=== PATIENT | male | born 2000 | race Caucasian/White ===

== ENCOUNTER 2025-10-30 00:34 | Emergency (ER) | payer SELFPAY ==
[2025-10-30] VITALS (20 sets, daily range): BP systolic 111–123; BP diastolic 71–78; PULSE 59–77; TEMP 36.4; O2SAT 98–99; BMI 20.7
--- NOTE | 2025-10-30 00:38 | ECG_ITS ---
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
--- NOTE | 2025-10-30 00:57 | ED.CHESTPAI1 ---
HPI - Chest Pain General Chief Complaint: Chest Pain Stated Complaint: SOB Chest pain dizziness Time Seen by Provider: 10/30/25 00:41 Source: patient Mode of arrival: ambulance Limitations: no limitations History of Present Illness HPI narrative: This 25-year-old male with a history of PTSD and anxiety presents for evaluation of chest pain, shortness of breath and dizziness that started while he was at work. He works at [employer]. 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 This is not his typical job but he does not express that he was overwhelmed doing this. He had some mild nausea at that time but did not vomit. He states he felt really dizzy like he was going to pass out. EMS was called and was given 324 mg baby aspirin and an IV was established by EMS. On arrival his chest pain is improved and he long no longer feels anxious or like he is going to pass out. He denies any chest pain upon arrival. He denies any diaphoresis but does admit that he was dizzy. He states he has a history of PT and anxiety. He is not on any medications for this. He states he has a panic attack about once a month. He does have a family physician in [facility] near where he lives. Related Data Home Medications ?Medication ?Instructions ?Recorded ?Confirmed No Known Home Medications 10/30/25 10/30/25 Allergies Allergy/AdvReac Type Severity Reaction Status Date / Time No Known Drug Allergies Allergy Verified 10/30/25 00:41 Review of Systems ROS Status of ROS 10 or more systems reviewed and unremarkable except as noted in history and below [facility] Medical History (Updated 10/30/25 @ 03:23 by Carey Will MD) Blindness of right eye ?H54.40 - Blindness, one eye, unspecified eye (ICD-10) PTSD (post-traumatic stress disorder) ?F43.10 - Post-traumatic stress disorder, unspecified (ICD-10) Anxiety ?F41.9 - Anxiety disorder, unspecified (ICD-10) Social History Little interest or pleasure in doing things: not at all Feeling down, depressed, or hopeless: not at all Exam Narrative Exam Narrative: Vital signs and Nursing Notes reviewed: Patient is afebrile with a normal pulse, normal blood pressure, he is not hypoxic with pulse ox of 98% on room air General: Awake, alert, oriented, no acute distress, lying comfortably on the stretcher HEENT: Normocephalic atraumatic, mucous membranes are moist and pink, eyes are clear, normal conjunctiva, vision is grossly intact, posterior pharynx is normal in appearance. Neck: Supple, no meningeal signs, no anterior or posterior cervical lymphadenopathy Chest: Lungs are clear to auscultation with good air entry, there is no wheezing rhonchi or rales appreciated no accessory muscle use, patient is speaking in complete sentences-no chest wall tenderness to palpation CVS: Regular rate and rhythm S1-S2, no murmurs rubs or gallops, pulses are brisk and equal bilaterally ABD: Soft, nondistended, nontender, no rebound guarding or rigidity, bowel sounds are normal, no pulsatile masses appreciated Extremities: Moving all extremities, no lower extremity tenderness or swelling noted, negative Homans' sign, pulses are brisk and equal bilaterally Skin: Normal in appearance without rash,pallor, petechiae or purpura Neuro: No focal deficits Psych: Patient is calm, cooperative, forthcoming, does not appear to be responding to internal stimuli Constitutional Vital Signs, click to edit/add: Last Vital Signs Temp 97.6 F 10/30/25 00:35 Pulse 67 10/30/25 03:10 Resp 16 10/30/25 03:10 BP 123/78 10/30/25 02:00 Pulse Ox 99 10/30/25 02:20 O2 Del Method Room Air 10/30/25 00:35 Course Vital Signs Vital signs: Vital Signs Temperature 97.6 F 10/30/25 00:35 Pulse Rate 74 10/30/25 00:35 Respiratory Rate 19 10/30/25 00:35 Blood Pressure 120/71 10/30/25 00:35 Pulse Oximetry 98 10/30/25 00:35 Oxygen Delivery Method Room Air 10/30/25 00:35 Temperature 97.6 F 10/30/25 00:35 Pulse Rate 67 10/30/25 03:10 Respiratory Rate 16 10/30/25 03:10 Blood Pressure 123/78 10/30/25 02:00 Pulse Oximetry 99 10/30/25 02:20 Oxygen Delivery Method Room Air 10/30/25 00:35 MDM - Chest Pain MDM Narrative Medical decision making narrative: This 25-year-old male, smoker with a history of PTSD and anxiety is brought to emergency department by EMS from [facility] where he works for evaluation of chest pain, shortness of breath and dizziness. Patient states the symptoms started while he was at work. He did not pass out. He has no abdominal pain. He did have some mild nausea prior to coming in but did not vomit. He is not on any medications for his anxiety or PTSD. He denies any suicidal or homicidal ideation. EKG done upon arrival is a sinus rhythm at 73 bpm with no acute findings. An IV had been established by EMS and he was given 324 mg baby aspirin prior to arrival. His vital signs are stable. Lungs are clear, abdomen is soft. Pulses are brisk and equal bilaterally. Cardiac workup was ordered. He has a normal white count and stable hemoglobin. Electrolytes and liver function tests are normal. D-dimer is normal. Initial troponin is negative. 1 view chest x-ray was ordered after the D-dimer resulted. Chest x-ray was reviewed by myself and does not show any pneumothorax, mediastinum and no acute pulmonary infiltrates. His symptoms had improved prior to arrival. He does not require anything for anxiety or pain. Delta troponin was ordered and is also normal. He has been on the monitoring analyst since arriving without any ectopy or other notable abnormalities. He has not had any recurrence of any of his symptoms. At this time I feel it is safe for him to be discharged home and recommended close follow-up with his family physician. I did offer him a prescription for hydroxyzine for his anxiety but he declines. Lab Data Attestation: I reviewed the patient's lab results. Labs: Lab Results 10/30/25 10/30/25 Range/Units 00:40 02:20 WBC 8.2 (4.0-11.0) 10^3/uL RBC 4.81 (4.70-6.10) 10^6/uL Hgb 15.1 (14.0-18.0) g/dL Hct 41.9 L (42.0-54.0) % MCV 87.1 (80.0-94.0) fL MCH 31.4 (25.9-34.0) pg MCHC 36.0 H (29.9-35.2) g/dL RDW 12.1 (11.0-15.0) % Plt Count 250 (150-450) 10^3/uL MPV 8.8 L (9.5-13.5) fL Neut % (Auto) 58.5 (43.0-75.0) % Lymph % (Auto) 30.9 (20.5-60.0) % Sully % (Auto) 8.4 (1.7-12.0) % Eos % (Auto) 1.6 (0.9-7.0) % Baso % (Auto) 0.5 (0.2-2.0) % Neut # (Auto) 4.8 (1.4-6.5) 10^3/uL Lymph # (Auto) 2.5 (1.2-3.8) 10^3/uL Sully # (Auto) 0.7 (0.3-0.8) 10^3/uL Eos # (Auto) 0.1 (0.0-0.7) 10^3/uL Baso # (Auto) 0.0 (0.0-0.1) 10^3/uL Abs Immat Gran (auto) 0.01 (0.00-0.03) 10^3/uL Imm/Tot Granulo (auto) 0.1 (0.0-0.5) % D-Dimer <0.19 (<=0.59) mg/L FEU Sodium 139 (136-145) mmol/L Potassium 3.8 (3.5-5.1) mmol/L Chloride 104 (98-107) mmol/L Carbon Dioxide 28.5 (21.0-32.0) mmol/L Anion Gap 10.3 BUN 11.0 (7.0-18.0) mg/dL Creatinine 0.77 (0.70-1.30) mg/dL Est GFR ( Amer) >60 (>=60 mL/min/1.73m^2) Est GFR (Non-Af Amer) >60 (>=60 mL/min/1.73m^2) BUN/Creatinine Ratio 14.3 Glucose 96 (74-106) mg/dL Calcium 9.0 (8.5-10.1) mg/dL Total Bilirubin 0.9 (0.2-1.0) mg/dL AST 14 L (15-37) U/L ALT 26 (16-63) U/L Alkaline Phosphatase 65 (46-116) U/L Troponin I High Sens 5.3 5.3 (4.0-76.1) pg/mL Total Protein 7.3 (6.4-8.2) g/dL Albumin 4.1 (3.4-5.0) g/dL Globulin 3.2 g/dL Albumin/Globulin Ratio 1.3 ECG Data Attestation: I personally reviewed and interpreted this ECG as follows: (Sinus rhythm at 73 bpm, normal axis, incomplete right bundle branch block, no acute ST segment elevation or T wave inversion) Heart Score History: Slightly/Non-Suspicious ECG: Normal Age: <45 years Risk Factors: 1 or 2 Risk Factors Troponin: <Normal Limit Total Heart Score Recommendations & Risks:: 1 Discharge Plan Discharge Chief Complaint: Chest Pain Clinical Impression: Atypical chest pain, Generalized anxiety disorder Patient Disposition: Home, Self-Care Time of Disposition Decision: 03:23 Condition: Good Prescriptions / Home Meds: No Action No Known Home Medications Print Language: Bengali Instructions: Chest Pain (ED), Noncardiac Chest Pain (ED), Anxiety (ED), Panic Attack (ED) Referrals: SAV GONSALEZ, SENIOR STRUCTURAL ENGINEER [Primary Care Provider] - 1 week
[2025-10-30 01:01] LABS: Hematocrit 41.9 % (42.0-54.0); Hemoglobin 15.1 g/dL (14.0-18.0); Immature Granulocytes Abs Auto 0.01 10^3/uL (0.00-0.03); Immature Granulocytes Pct Auto 0.1 % (0.0-0.5); Lymphocytes Absolute Auto 2.5 10^3/uL (1.2-3.8); Mean Corpuscular HGB Conc 36.0 g/dL (29.9-35.2); Mean Corpuscular Hemoglobin 31.4 pg (25.9-34.0); Mean Corpuscular Volume 87.1 fL (80.0-94.0); Platelet Count 250 10^3/uL (150-450); Red Blood Count 4.81 10^6/uL (4.70-6.10); White Blood Count 8.2 10^3/uL (4.0-11.0)
--- OUTSIDE RECORDS SUMMARY | 2025-10-30 01:13 | XMS_ITS | Clinical Summary ---
Author Organization [facility] Address [address] [place] [address] Care Team Providers Care Therapeutic Case Manager Name Role Phone KevinUrban Bon OWEN Primary Care Provider Allergies No known active allergies Medications MedicationSigDispense QuantityRefillsLast FilledStart DateEnd DateStatus predniSONE (Deltasone) 20 MG tablet Indications:Acute non-recurrent pansinusitisTake 3 tablets for 2 days THEN 2 tablets for 2 days THEN 1 tablet for 2 days 12 tablet 4Active Active Problems No known active problems Immunizations ImmunizationAdministration DatesNext GhxBDiW6804/17/2006,09/09/2002,03/13/2001, 01/18/2001,2000HPV, Uqjoqzdypgfq93/08/2014Hep B, Adolescent or Pediatric 06/12/2001,01/18/2001,2000,2000HiB, lbegwykqxxa23/15/2002,03/13/2001 ,01/18/2001,2000IPV04/17/2006,09/09/2002,01/18/2001,2000Influenza, injectable, quadrivalent, preservative free11/06/2019MMR04/17/2006,04/10/2002 Meningococcal DQB8U76Meningococcal CVP8A2305/31/2018Tdap1 Kxlitftty26/08/2014,04/10/2002 Family History Medical HistoryRelationNameCommentsStrokeMaternal GrandmotherLeukemiaPaternal GrandfatherLung cancerPaternal GrandmotherRelationNameStatusCommentsFatherAlive Maternal GrandfatherDeceasedMaternal GrandmotherDeceasedMotherAlivePaternal GrandfatherDeceasedPaternal GrandmotherDeceased Social History Tobacco UseTypesPacks/DayYears UsedDateSmoking Tobacco: Every DayCigarettes Smokeless Tobacco: Never Tobacco Cessation:Ready to Q uit: No; Counseling Given: Yes Comments:Started smoking at age 18 Alcohol UseStandard Drinks/WeekCommentsYes0 (1 standard drink = 0.6 oz pure alcohol)AUDIT-CAnswerDate RecordedQ1: How often do you have a drink containing alcohol?Monthly or less01/01/2024Q2: How many drinks containing alcohol do you have on a typical day when you are drinking?3 or Q3: How often do you have six or more drinks on one occasion?Never01/01/2024Sex and Gender InformationValueDate RecordedSex Assigned at BirthNot on fileLegal SexMale 02/08/2023 7:37 PM EDTGender IdentityNot on fileSexual OrientationNot on file Last Filed Vital Signs Vital SignReadingTime TakenCommentsBlood Wfxkkdmr884/8002 1:08 PM EST Bxexb257101/01/2024 1:08 PM JZGRksedsiuupl25.7 ??C (98.1 ??F)01/01/2024 1:08 PM ESTRespiratory Rate--Oxygen Skdonmoxjp26%01/01/2024 1:08 PM ESTInhaled Oxygen Concentration--Opnyjm52.3 kg (144 lb)01/01/2024 1:08 PM BCMQtwips243.7 cm (5' 8 )01/01/2024 1:08 PM ESTBody Mass Index21.9001/01/2024 1:08 PM EST Plan of Treatment Health MaintenanceDue DateLast DoneCommentsPneumococcal Vaccine: Pediatrics (0 to 5 Years) and At-Risk Patients (6 to 64 Years) (1 of 2 - PCV)2019COVID- 19 Vaccine (3 - 2024- season)/11/2020, 02/27/2021Influenza Vaccine (#1) Insurance Care Teams Team MemberRelationshipSpecialtyStart DateEnd Date Urban Brown, [address] [place] [address] PCP - GeneralFamily Medicine04/04/23
[2025-10-30 01:19] LABS: Alanine Aminotransferase 26 U/L (16-63); Albumin Globulin Ratio 1.3; Albumin Level 4.1 g/dL (3.4-5.0); Alkaline Phosphatase 65 U/L (46-116); Anion Gap 10.3; Aspartate Amino Transferase 14 U/L (15-37); Blood Urea Nitrogen 11.0 mg/dL (7.0-18.0); Calcium 9.0 mg/dL (8.5-10.1); Carbon Dioxide 28.5 mmol/L (21.0-32.0); Chloride 104 mmol/L (98-107); Estimated GFR (African America >60 (>=60 mL/min/1.73m^2); Estimated GFR (Non-African Ame >60 (>=60 mL/min/1.73m^2); Globulin 3.2 g/dL; Glucose 96 mg/dL (74-106); Potassium 3.8 mmol/L (3.5-5.1); Sodium 139 mmol/L (136-145); Total Protein 7.3 g/dL (6.4-8.2)
--- NOTE | 2025-10-30 01:54 | XR_ITS ---
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 There is no vascular congestion. No consolidation is seen. There is no effusion or pneumothorax. The osseous structures are intact. XR/XR chest 1V IMPRESSION: NO ACUTE FINDINGS Impression dictated by: Trinidad Pereira M.D. 10/30/2025 8:35 AM Dictation Location: [place] [address] Electronically authenticated by: [id number] Date: 10/30/2025 08:35
== END 2025-10-30 03:34 | disposition home or self-care (01) ==
PROVIDERS: Emergency Provider Emergency Medicine; PCP Nurse Practitioner Primary Care
DX: R07.89 Other chest pain (principal); F41.1 Generalized anxiety disorder; F43.10 Post-traumatic stress disorder, unspecified; F17.200 Nicotine dependence, unspecified, uncomplicated
CPT/HCPCS: 36415; 71045; 80053; 84484; 85025; 85378; 93005; 99285